=== PATIENT | female | born 1965 | race Caucasian/White ===

== ENCOUNTER → 2024-01-10 10:49 | Outpatient (REF) | payer OTHER, SELFPAY ==
[2024-01-10 13:52] LABS: D-Dimer 0.76 ug/mlFEU (0.00-0.50)
[2024-01-10 14:34] LABS: NT-proBNP 51.9 pg/ml
== END ==
LOC: RAD 10:49
PROVIDERS: ATTENDING PHYSICIAN Family Medicine
DX: R06.09 Other forms of dyspnea (principal); M79.661 Pain in right lower leg; M79.662 Pain in left lower leg
CPT/HCPCS: 36415; 71046; 83880; 85379; 93970

== ENCOUNTER 2024-01-10 17:53 | Emergency (ER) | payer OTHER, SELFPAY ==
[2024-01-10 18:02] VITALS: BP 126/52; BMI 39.5
--- NOTE | 2024-01-10 19:59 | ED.GENMED ---
History of Present Illness
<Joann Yuan PA-C - Last Filed: 01/10/24 23:23>
General
Chief Complaint: Swelling
Source: patient
Exam Limitations: none
Time Seen by Provider: 01/10/24 19:36
Nursing documentation reviewed up to this point in time: agreed with
Travel History
Have you had any contact with someone who has COVID-19?: No
Do you have any symptoms of coronavirus? Fever > 100 degrees, chills, cough, shortness of breath, sore throat, loss of taste or smell, muscle aches, or headache?: No
History of Present Illness
History of Present Illness:
Patient is a 59-year-old female presenting to the emergency department for evaluation of worsening shortness of breath. Patient states that she has noticed some increase in shortness of breath over the past 2 weeks. She states her has
taken note of this and recommended that she have this evaluated. Shortness of breath is both present at rest and with exertion�she does report noticing increased work of breathing occasionally while sitting at her computer, for example. Patient
denies any associated fever, chills, URI symptoms. She denies any chest pain, lower extremity edema, dizziness, lightheadedness, fainting. Patient does states that she has gained some weight recently and is wondering if the shortness of breath may
be attributed to this.
Patient was seen by her primary care provider today who ordered labs, chest x-ray, ultrasound of bilateral legs. Both chest x-ray and ultrasound were both without any abnormalities. Her D-dimer level was found to be elevated to 0.76. She was sent
to emergency department for PE workup.
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 She was admitted for IV heparin. She was then placed on Xarelto for 6 months. She has since been anticoagulated
Past History
<Joann Yuan PA-C - Last Filed: 01/10/24 23:23>
Past History
ED Past Medical History: Other (Rosacia, Cellulitis right knee, Migraines, Diverticulitis); Negative Asthma, HTN, Hypercholesterolemia or NIDDM
ED Past Surgical History: Appendectomy
Social History
Tobacco: Non-smoker
Alcohol: Occasional
Personal:
Living: with family
Family History
Family History: Unable to obtain
Phy Exam
<Joann Yuan PA-C - Last Filed: 01/10/24 23:23>
Physical Exam
Physical Exam:
Vitals: Patient's vital signs are stable
General: Patient is very well appearing, no acute distress
Skin: Warm and dry, no rashes or lesions
Head: Normocephalic, atraumatic
Eyes: Sclera nonicteric. EOMs intact. No nystagmus.
Cardiac: Regular rate and rhythm, no murmurs.
Pulm: Normal respiratory effort, no wheezes, rales, rhonchi heard on exam.
Abdomen: No abdominal tenderness.
Extremities: No evidence of cyanosis or edema; DP and PT pulses palpable bilaterally
Neuro: AAOx3. CN II-XII intact. No focal neurologic deficits.
Psychiatric: Normal affect.
Scores
<Joann Yuan PA-C - Last Filed: 01/10/24 23:23>
Heart Failure Risk
Heart Failure Risk Score: Not Applicable
Course
<Joann Yuan PA-C - Last Filed: 01/10/24 23:23>
Orders/Labs/Results
Orders:
Orders
01/10/24 20:10
Electrocardiogram (*1) Urgent
Reason for Study: Shortness of Breath
CT Chest Pe Study Urgent
Comment: hx PE
Reason For Exam: SOB, elevated dimer
EKG- Treatment ONCE
01/10/24 20:22
Complete Blood Count/With Diff Urgent
Comprehensive Metabolic Panel Urgent
Troponin I Urgent
01/10/24 20:27
PTT Urgent
Prothrombin Time Urgent
Abnormal Lab Results
01/10/24
20:22
RBC 4.11 L 10^6/uL
(4.20-5.40)
Hct 36.7 L %
(37.0-47.0)
BUN 20 H mg/dl
(7-17)
01/10/24 20:22
01/10/24 20:22
Vital Signs
Initial and Last Documented VS:
Initial Vital Signs
Temp Pulse Resp BP Pulse Ox
97.8 F 73 16 126/52 97
01/10/24 18:02 01/10/24 18:02 01/10/24 18:02 01/10/24 18:02 01/10/24 18:02
Last Documented Vital Signs
Temp Pulse Resp BP Pulse Ox
97.8 F 73 16 126/52 97
01/10/24 18:02 01/10/24 18:02 01/10/24 18:02 01/10/24 18:02 01/10/24 18:02
<Kelley Casiano MD - Last Filed: 01/10/24 20:25>
Orders/Labs/Results
Orders:
Orders
01/10/24 20:10
Electrocardiogram (*1) Urgent
Reason for Study: Shortness of Breath
CT Chest Pe Study Urgent
Comment: hx PE
Reason For Exam: SOB, elevated dimer
EKG- Treatment ONCE
01/10/24 20:22
Complete Blood Count/With Diff Urgent
Comprehensive Metabolic Panel Urgent
Troponin I Urgent
01/10/24 20:27
PTT Urgent
Prothrombin Time Urgent
Abnormal Lab Results
01/10/24
20:22
RBC 4.11 L 10^6/uL
(4.20-5.40)
Hct 36.7 L %
(37.0-47.0)
BUN 20 H mg/dl
(7-17)
01/10/24 20:22
01/10/24 20:22
Vital Signs
Initial and Last Documented VS:
Initial Vital Signs
Temp Pulse Resp BP Pulse Ox
97.8 F 73 16 126/52 97
01/10/24 18:02 01/10/24 18:02 01/10/24 18:02 01/10/24 18:02 01/10/24 18:02
Last Documented Vital Signs
Temp Pulse Resp BP Pulse Ox
97.8 F 73 16 126/52 97
01/10/24 18:02 01/10/24 18:02 01/10/24 18:02 01/10/24 18:02 01/10/24 18:02
<Joann Yuan PA-C - Last Filed: 01/10/24 23:23>
MDM/Problems Addressed
Differential Diagnosis Includes:
Not limited to: Viral illness, anemia, doubt cardiac etiology including ACS or pericarditis, doubt PE
MDM/Problems Addressed:
Patient is a 59-year-old female with history DVT/PE, not currently anticoagulated, presenting for evaluation of shortness of breath. Outpatient lab work showed elevated D-dimer today�sent to rule out pulmonary embolism. Bilateral lower extremity
ultrasound formed outpatient today shows no evidence of DVT. Chest x-ray negative for any signs of acute disease. Vital signs are stable�she is not tachycardic, oxygen saturation 97 on room air. Exam as above. She is very well-appearing, in no
apparent respiratory distress. Heart regular rate and rhythm. Lungs clear bilaterally. No clinical evidence of DVT on exam. Given mildly elevated D-dimer of 0.76 seen outpatient today we will do PE/workup, although suspicion for PE/ACS is
extremely low. Will check basic labs, coag studies, troponin. Will check EKG. Will get CTA chest
Labs noted. No clinically significant abnormalities. EKG shows normal sinus rhythm without any signs of acute ischemia or evidence of right heart strain. Troponin negative. CTA pending. Patient remains extremely well-appearing, no apparent
distress
CTA chest shows no evidence of pulmonary embolism. Workup here entirely negative. Plan to discharge with close primary care follow-up. Return precautions discussed with patient at length. Patient comfortable with plan. All questions answered.
Chronic conditions affecting care:
Prior DVT/PE
Acute Exacerbation and/or Progression of Chronic Illness:
N/A
<Joann Yuan PA-C - Last Filed: 01/10/24 23:23>
*Radiology
Radiology exam reviewed: radiology read reviewed
*Pulse Oximetry
Patient hypoxic: no
*EKG
Interpreted by ED Provider?: Yes
EKG Intrepretation Date: 01/10/24
Interpretation: normal
Comparison EKG: no comparison EKG present
Heart Rate: 67
Rate: normal
Rhythm: sinus
Ischemia: no ischemia
*Funeral Planning Counselor Interpretation
Rate: Funeral Planning Counselor- N/A
*Critical Care Note
Total Time (30-74mins, 75-104mins- exclusive of procedures): Not Applicable
Data Reviewed
Review of Other/Old Records Reveals: Labs, Records, Radiology Studies, Progress Notes and Discharge Summary
Source: previous radiology exam and previous hospital records
ED Attending Note
<Joann Yuan PA-C - Last Filed: 01/10/24 23:23>
-
Portions of this chart may have been created with voice recognition software.� Occasional wrong word or��sound alike� substitutions may have occurred due to the inherent limitations of voice recognition software.
<Kelley Casiano MD - Last Filed: 01/10/24 20:25>
ED Attending Note
Patient seen and examined by attending physician: Yes
I performed the substantive portion of visit, reviewed & personally made and approve the management plan that is documented in note by myself or DAVID.: Yes
ED Attending Note:
59-year-old female with a history of DVT/PE in the past, not currently anticoagulated, who presents to the emergency department after partial outpatient workup regarding increasing intermittent shortness of breath for at least the past few weeks.
She states that she is recently gained weight and thinks it is related to that, she would not be here however it is her who says that she appears to be recently short of breath. Patient states that she sometimes feels like she needs to take
a deep breath when she is sitting at the computer for example. She denies orthopnea, PND, new lower extremity edema, chest pain or pressure, dizziness, fever, chills, cough, sore throat, rhinorrhea. She typically feels mild dyspnea while walking
up steps for example that she personally does not feel that it is significantly different than usual. On exam, patient extremely well-appearing, normal vitals, heart regular rate and rhythm, lungs CTA, speaks in full sentences easily, no wheezes
rales or rhonchi. She is resting with her phone and iPad in no distress. Suspicion for PE/DVT extremely low, also doubt ACS, pericarditis, anemia, etc. Up in progress.
Discharge Plan
Departure
Patient Disposition: Home (Routine Discharge)
Date of Disposition: 01/10/24
Time of Disposition: 22:23
Patient with high blood pressure during this ER visit?: No
Condition: Good
Covid-19: Not Applicable
Discharge Problem:
Shortness of breath
Instructions: Shortness of Breath, Adult ED
Prescriptions:
No Action
azelaic acid [Finacea] 30 GM gel
1 applic topical DAILY
acetaminophen 325 MG tablet
650 mg PO Q6HPRN PRN (Reason: mild pain/ fever>100.5F) 0RF
METFORMIN HCl
1,500 mg PO DAILY
rivaroxaban [Xarelto] 15 MG tablet
15 mg PO BID Qty: 40 0RF
Referrals:
Michael Ryan DO [Family Provider] - Follow up in 2-3 days
Activity Restrictions/Additional Instructions:
� Return to the emergency department with any high fever, shortness of breath/difficulty breathing, chest pain, dizziness/lightheadedness, persistent pain/swelling in lower extremities, worsening in current symptoms, or any other concerns
-As discussed�there was no evidence of pulmonary embolism on your workup today in the emergency department.
-It is important stay well-hydrated
-You should follow-up with your primary care provider for further evaluation/management of your shortness of breath
Interventions
Interventions:
*Risk Screen - Suicide Last Done: 01/10/24 18:02
*Neglect/Abuse Screening Last Done: 01/10/24 18:02
ED- Fall Risk Assessment Last Done: 01/10/24 18:02
*ED COVID-19 Vaccine History Last Done: 01/10/24 18:02
*Nursing Disposition Last Done: 01/10/24 22:25
ED- Cardiac Assessment Last Done: 01/10/24 21:06
ED- Pulmonary Assessment Last Done: 01/10/24 21:06
Discharge Date and Time
Discharge Date/Time: 01/10/24 22:40
Print Language: MALAY
[2024-01-10 20:31] LABS: % Basophils 0.6 % (0-2); % Immature Granulocytes 0.1 % (0-0.5); % Lymphocytes 38.9 % (20.5-51.1); % Monocytes 5.7 % (1.7-9.3); % Neutrophils 51.7 % (42.2-75.2); Absolute Basophils 0.1 10^3/uL (0-0.2); Absolute Eosinophils 0.2 10^3/uL (0-0.7); Absolute Lymphocytes 3.1 10^3/uL (1.2-3.4); Absolute Monocytes 0.5 10^3/uL (0.1-0.6); Absolute Neutrophils 4.1 10^3/uL (1.4-6.5); Hematocrit 36.7 % (37.0-47.0); Hemoglobin 12.7 g/dL (12.0-16.0); Mean Corp Hgb Conc. 34.6 g/dL (33.0-37.0); Mean Corpuscular Hgb 30.9 pg (27.0-31.0); Mean Corpuscular Volume 89.3 fL (81.0-99.0); Mean Platelet Volume 9.2 fL (7.4-10.4); Nucleated Red Blood Cells % 0 %; Platelet Count 282 10^3/uL (130-400); Red Blood Cell Count 4.11 10^6/uL (4.20-5.40); Red Cell Dist. Width 12.1 % (11.5-14.5); White Blood Cell Count 7.9 10^3/uL (4.8-10.8)
[2024-01-10 20:42] LABS: INR 1.07; PT 13.7 Sec (11.4-14.6)
[2024-01-10 20:43] LABS: APTT 31.9 Sec (23.4-35.0)
[2024-01-10 20:46] LABS: ALT (SGPT) 20 U/L (0-35); AST (SGOT) 22 U/L (14-36); Albumin 4.1 g/dl (3.5-5.0); Alkaline Phosphatase 88 U/L (38-126); Blood Urea Nitrogen 20 mg/dl (7-17); Calcium 9.4 mg/dl (8.4-10.2); Carbon Dioxide 24 mmol/L (22-30); Chloride 105 mmol/L (98-107); Estimated Creatinine Clearance 100 ml/min; Glucose 89 mg/dl (70-99); Sodium 136 mmol/L (135-145); Total Bilirubin 0.3 mg/dl (0.2-1.3); Total Protein 6.6 g/dl (6.3-8.2); eGFR > 60.00
[2024-01-10 20:56] LABS: Troponin I < 0.012 ng/ml
== END 2024-01-10 22:40 | disposition home or self-care (01) ==
LOC: EMR 17:53
PROVIDERS: Physician Assistant; EMERGENCY PHYSICIAN Emergency Medicine; FAMILY PHYSICIAN Family Medicine
DX: R06.02 Shortness of breath (principal)
CPT/HCPCS: 99284; 71275; 80053; 84484; 85025; 85610; 85730; 93005; Q9967

== ENCOUNTER → 2024-08-20 06:20 | Day surgery (SDC) | payer OTHER, SELFPAY | LOC: GI 06:20 | PROVIDERS: ATTENDING PHYSICIAN Internal Medicine Gastroenterology; FAMILY PHYSICIAN Family Medicine | DX: Z12.11 Encounter for screening for malignant neoplasm of colon (principal); K57.30 Diverticulosis of large intestine without perforation or abscess without bleeding; Z98.0 Intestinal bypass and anastomosis status; K64.8 Other hemorrhoids; Z86.0100 Personal history of colon polyps, unspecified | CPT/HCPCS: G0105 ==

== ENCOUNTER 2025-04-09 11:24 | Emergency (ER) | payer OTHER, SELFPAY ==
[2025-04-09 11:31] VITALS: BP 132/86
--- NOTE | 2025-04-09 13:55 | ED.GENMED ---
History of Present Illness
General
Chief Complaint: DVT/Possible Blood Clot
Source: patient
Exam Limitations: none
Time Seen by Provider: 04/09/25 13:42
History of Present Illness
History of Present Illness:
60-year-old female presents with worsening redness swelling and pain to the right lower leg. She does have a history of DVT and PE that was treated years ago with anticoagulants but she is no longer on a blood thinner. She states she has been
sitting pretty frequently for her job. No extended travel or surgery. No fevers. No other complaints at this time
Past History
Past History
ED Past Medical History: Other (Rosacia, Cellulitis right knee, Migraines, Diverticulitis); Negative Asthma, HTN, Hypercholesterolemia or NIDDM
ED Past Surgical History: Appendectomy
Social History
Tobacco: Non-smoker
Alcohol: Occasional
Personal:
Living: with family
Family History
Family History: Unable to obtain
Phy Exam
Physical Exam
Physical Exam:
General: Well-appearing female no acute respiratory distress
HEENT: Normocephalic atraumatic
Extremities: Edema noted to the right leg with overlying subtle erythema to the medial distal right weldon. This is tender to the touch.
Vascular: 2+ DP pulse right foot
Neurologic: Good sensation right foot
Course
Orders/Labs/Results
Orders:
Orders
04/09/25 11:53
US Legs, Right [US Periph Venous LOWER Ext RT] Urgent
Comment: history of DVT and PE
Reason For Exam: swelling + redness of R lower leg
04/09/25 13:54
Apixaban [Eliquis] 10 mg PO NOW STA
Vital Signs
Initial and Last Documented VS:
Initial Vital Signs
Temp Pulse Resp BP Pulse Ox
98 F 79 16 132/86 98
04/09/25 11:31 04/09/25 11:31 04/09/25 11:31 04/09/25 11:31 04/09/25 11:31
Last Documented Vital Signs
Temp Pulse Resp BP Pulse Ox
98 F 79 16 132/86 98
04/09/25 11:31 04/09/25 11:31 04/09/25 11:31 04/09/25 11:31 04/09/25 11:31
MDM/Problems Addressed
Differential Diagnosis Includes:
Right leg swelling and erythema. Consider cellulitis versus DVT. Patient not currently anticoagulated.
Ultrasound of the leg was ordered which shows DVT in the right peroneal vein. Will start on Eliquis for DVT treatment. First dose given here will prescribe the rest. She has hematology she can follow-up with
No respiratory symptoms of chest pain or shortness of breath to suggest the presence of a PE at this time
*Pulse Oximetry
SaO2: 98
Oxygen Mode of Delivery: Room air
Patient hypoxic: no
*Critical Care Note
Total Time (30-74mins, 75-104mins- exclusive of procedures): Not Applicable
ED Attending Note
-
Portions of this chart may have been created with voice recognition software.� Occasional wrong word or��sound alike� substitutions may have occurred due to the inherent limitations of voice recognition software.
Discharge Plan
Departure
Patient Disposition: Home (Routine Discharge)
Date of Disposition: 04/09/25
Time of Disposition: 13:57
Patient with high blood pressure during this ER visit?: No
Discharge Problem:
DVT (deep venous thrombosis)
Instructions: Deep Vein Thrombosis (Blood Clots in the Legs) (DC)
Prescriptions:
New
Eliquis 5 mg tablet
5 mg PO BID Qty: 60 0RF
Rx Instructions:
Take 10mg twice a day for one week. Then take 5mg twice a day thereafter.
No Action
azelaic acid [Finacea] 30 GM gel
1 applic topical DAILY
acetaminophen 325 MG tablet
650 mg PO Q6HPRN PRN (Reason: mild pain/ fever>100.5F) 0RF
METFORMIN HCl
1,500 mg PO DAILY
rivaroxaban [Xarelto] 15 MG tablet
15 mg PO BID Qty: 40 0RF
Activity Restrictions/Additional Instructions:
Take Eliquis as directed 10 mg twice a day for the first week then transition to 5 mg twice a day after the first week. 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 We worsening symptoms
Interventions
Interventions:
*Risk Screen - Suicide Last Done: 04/09/25 11:36
*General Assessment Last Done: 04/09/25 13:41
*Neglect/Abuse Screening Last Done: 04/09/25 13:41
*ED- Fall Risk Assessment Last Done: 04/09/25 13:41
*ED COVID-19 Vaccine History Last Done: 04/09/25 13:41
ED- Cardiac Assessment Last Done: 04/09/25 13:41
ED- Pulmonary Assessment Last Done: 04/09/25 13:41
ED-Peripheral Vascular Assessment Last Done: 04/09/25 13:41
ED-Skin Assessment Last Done: 04/09/25 13:41
Discharge Date and Time
Print Language: WOLOF
[2025-04-09] MEDS: ELIQUIS 10 MG PO (14:06)
[2025-04-09 14:11] VITALS: BP 136/78
== END 2025-04-09 14:16 | disposition home or self-care (01) ==
LOC: EMR 11:24
PROVIDERS: EMERGENCY PHYSICIAN Emergency Medicine; FAMILY PHYSICIAN Family Medicine
DX: I82.451 Acute embolism and thrombosis of right peroneal vein (principal); M79.661 Pain in right lower leg; R60.0 Localized edema; K57.92 Diverticulitis of intestine, part unspecified, without perforation or abscess without bleeding; G43.909 Migraine, unspecified, not intractable, without status migrainosus; L71.9 Rosacea, unspecified
CPT/HCPCS: 99284; 93971

== ENCOUNTER → 2025-07-08 18:43 | Outpatient (REF) | payer OTHER, SELFPAY | LOC: WDC 18:43 | PROVIDERS: ATTENDING PHYSICIAN Family Medicine | DX: Z12.31 Encounter for screening mammogram for malignant neoplasm of breast (principal) | CPT/HCPCS: 77063; 77067 ==

== ENCOUNTER → 2025-08-13 08:01 | Outpatient (REF) | payer OTHER, SELFPAY | LOC: RAD 08:01 | PROVIDERS: ATTENDING PHYSICIAN Internal Medicine Hematology & Oncology; FAMILY PHYSICIAN Family Medicine | DX: I82.451 Acute embolism and thrombosis of right peroneal vein (principal); I26.99 Other pulmonary embolism without acute cor pulmonale | CPT/HCPCS: 93971 ==